=== PATIENT | male | born 2000 | race Caucasian/White ===

== ENCOUNTER 2021-01-01 13:52 | Emergency (ER) | payer OTHER, SELFPAY ==
[2021-01-01 14:02] VITALS: BP 119/62; PULSE 88; RESP 16; TEMP 37.2; O2SAT 99
--- NOTE | 2021-01-01 14:04 | ED.EAR ---
HPI - Ear Problem General Chief complaint: Ear Stated complaint: Ear Pain Time Seen by Provider: 01/01/21 14:04 Source: patient, family and RN notes reviewed Mode of arrival: ambulatory Limitations: no limitations History of Present Illness HPI Narrative: Taurus is a 20-year-old male patient who ambulated into the [facility] accompanied by his mother. Patient is complaining of severe ear pain bilaterally. Patient states the left ear is worse today. Patient does have history of 3 to 4 days of nasal congestion. Patient denies any sore throat. Patient denies any other symptoms. Patient does have a history of ear infections in the past. Patient has not been using any [id number] medications. MD Complaint: ear pain Related Data Allergies Allergy/AdvReac Type Severity Reaction Status Date / Time No Known Allergies Allergy Verified 01/01/21 14:01 Review of Systems Review of Systems: CONSTITUTIONAL: Denies body aches, fever, chills, or sweats. EYES: Denies visual changes, redness, or discharge. ENT: Denies rhinorrhea, congestion, sore throat, left and right ear otalgia. CARDIOVASCULAR: Denies chest pain, palpitations, or edema. RESPIRATORY: Denies cough or dyspnea. GASTROINTESTINAL: Denies abdominal pain, nausea, vomiting, or diarrhea. GENITOURINARY: Denies dysuria or hematuria. SKIN: Denies rash, itching, or wounds. MUSCULOSKELETAL: Denies back pain, joint pain, or myalgia. NEUROLOGIC: Denies headache, numbness, tingling, or weakness. PSYCH: Denies depression or anxiety. All systems reviewed & are unremarkable except as noted in HPI and below PMFSH Comments At time of signature, I have reviewed and agree with nursing past medical, surgical, social and family history unless otherwise noted. Please see nursing chart for further information. There is no relevant family history pertinent to the presenting complaint Exam Narrative: GENERAL: Well-appearing, well-nourished, and in no acute distress. HEAD: Normocephalic, atraumatic. EYES: EOMI. No redness or drainage. Conjunctivae normal. ENT: Mucous membranes pink and moist. Nasal membranes erythemic with clear rhinorrhea. Left tympanic membrane is erythemic and bulging. Right tympanic membrane is bulging with minimal erythema . Posterior pharynx is mildly erythemic without edema or exudate. Postnasal drainage is noted . Uvula midline. NECK: Normal AROM. Supple. left anterior cervical lymphadenopathy. CHEST: No respiratory distress. Clear to auscultation. MUSCULOSKELETAL: No bony tenderness. EXTREMITIES: Normal range of motion. No edema. SKIN: Warm, dry, no rash. Capillary refill normal. Normal skin turgor. NEURO: No focal deficits. Alert and oriented x3. Gait steady. PSYCH: Normal affect. No signs of depression or anxiety. Course Vital Signs Vital signs: Vital Signs Temperature 37.2 C 01/01/21 14:02 Pulse Rate 88 01/01/21 14:02 Respiratory Rate 16 01/01/21 14:02 Blood Pressure 119/62 01/01/21 14:02 Pulse Oximetry 99 01/01/21 14:02 Temperature 37.2 C 01/01/21 14:02 Pulse Rate 88 01/01/21 14:02 Respiratory Rate 16 01/01/21 14:02 Blood Pressure 119/62 01/01/21 14:02 Pulse Oximetry 99 01/01/21 14:02 Reviewed Medical Decision Making MDM Narrative Medical decision making narrative: Patient has a left otitis media. His tympanic membrane is bulging and erythemic. Right tympanic membrane is bulging with a moderate amount of fluid and minimal erythema. Patient will be put on Augmentin and prednisone. Mother is present for the conversation. Patient was also informed he can take [id number] cold medicines for relief of symptoms. Increase fluids. Follow-up with your primary care physician in 7 to 10 days for continued symptoms sooner for increased pain. Differential Diagnosis Differential Diagnosis: Otitis media, otitis externa, nasopharyngitis, pharyngitis Medical Records Medical records reviewed: Yes I reviewed the
== END 2021-01-01 14:35 | disposition home or self-care (01) ==
PROVIDERS: Emergency Provider Nurse Practitioner Family; PCP Pediatrics
DX: H66.003 Acute suppurative otitis media without spontaneous rupture of ear drum, bilateral (principal)
CPT/HCPCS: 99213; G0463

== ENCOUNTER 2023-04-21 12:03 | Emergency (ER) | payer OTHER, SELFPAY ==
[2023-04-21 12:18] VITALS: BP 116/81; PULSE 86; RESP 16; TEMP 36.8; O2SAT 99
--- NOTE | 2023-04-21 12:31 | ED.URI ---
HPI - URI/Sore Throat General Chief Complaint: Upper Respiratory Infection Stated Complaint: SORE THROAT Time Seen by Provider: 04/21/23 12:30 History of Present Illness HPI Narrative: 23-year-old male presented for complaint of sore throat for about 3 days. He states last night the pain was severe and kept him up at night. Endorses painful swallow. Denies difficulty maintaining secretions. Endorses mild nasal congestion and cough. Denies shortness of breath, wheezing nausea vomiting diarrhea, fevers or chills. Not taking anything for symptoms. Related Data Allergies Allergy/AdvReac Type Severity Reaction Status Date / Time No Known Allergies Allergy Verified 01/01/21 14:01 Review of Systems Review of Systems: CONSTITUTIONAL: Denies body aches, fever, chills, or sweats. EYES: Denies visual changes, redness, or discharge. ENT: Reports rhinorrhea, sore throat CARDIOVASCULAR: Denies chest pain, palpitations, or edema. RESPIRATORY: Denies dyspnea. GASTROINTESTINAL: Denies abdominal pain, nausea, vomiting, or diarrhea. SKIN: Denies rash, itching, or wounds. MUSCULOSKELETAL: Denies back pain, joint pain, or myalgia. NEUROLOGIC: Denies headache Exam Narrative: GENERAL: well-appearing, no acute distress. EYES: conjunctivae clear ENT: Mucous membranes moist. TMs pearly pinzon with normal light reflex bilaterally; no tragal tenderness. Oropharynx erythematous without lesions. Tonsils enlarged 1+ and without exudate. No drooling, no hoarseness, no trismus, uvula midline. No tripod positioning, hot potato voice, or soft palate swelling. NECK: Supple. No lymphadenopathy CHEST: Clear to auscultation, breath sounds equal. No respiratory distress, speaks in full sentences. HEART: Regular rate and rhythm. No murmur heard. SKIN: Warm, dry, no rash. NEURO: Alert and oriented x3. Course Course Emergency Course: Patient is aware of diagnosis, understands and agrees to treatment plan. Anticipatory guidance given. Patient agrees to follow-up as directed and is aware of reasons to seek care at the emergency department. Portions of this record may have been created with voice recognition software Level of Care: Express Care Visit Vital Signs Vital signs: Vital Signs Temperature 98.2 F 04/21/23 12:18 Pulse Rate 86 04/21/23 12:18 Respiratory Rate 16 04/21/23 12:18 Blood Pressure 116/81 04/21/23 12:18 Pulse Oximetry 99 04/21/23 12:18 Temperature 98.2 F 04/21/23 12:18 Pulse Rate 86 04/21/23 12:18 Respiratory Rate 16 04/21/23 12:18 Blood Pressure 116/81 04/21/23 12:18 Pulse Oximetry 99 04/21/23 12:18 MDM - URI/Sore Throat MDM Narrative Medical decision making narrative: Negative strep result reviewed with pt. will treat based on PE and CC. Advise supportive treatments. Patient is appropriate for outpatient treatment and follow-up. Differential Diagnosis Differential diagnosis: Likely upper respiratory infection, viral infection and pharyngitis Discharge Plan Discharge Clinical Impression: Pharyngitis Patient Disposition: Home, Self-Care Condition: Stable Instructions: Antibiotic Form, Pharyngitis (ED) Additional Instructions: Negative strep - Take the antibiotic as directed. Fever and sore throat typically resolve within one to three days. Most patients can return to work, after 12 to 24 hours of antibiotic therapy, provided you are fever free and otherwise well. -Eat and drink things that are easy to swallow, like soft foods, cool liquids, tea with honey, or popsicles . -Salt water gargles and/or may use topical anesthetic ( Chloraseptic spray) or lozenges to relieve dryness or throat pain -Alternate Tylenol and ibuprofen as needed for pain and fever as directed. -Frequent hand washing or hand quality assurance manager is one of the best ways to prevent spread of infection. Throw away the toothbrush after 24hours of antibiotic. -Follow up with primary care provider
== END 2023-04-21 12:42 | disposition home or self-care (01) ==
PROVIDERS: Emergency Provider Nurse Practitioner Family
DX: J02.9 Acute pharyngitis, unspecified (principal)
CPT/HCPCS: 87081; 87880; 99213; G0463